=== PATIENT | female | born 1935 | race Hispanic/Latino ===

== ENCOUNTER 2017-10-06 11:04 | Emergency (ER) | payer MEDICARE ==
[2017-10-06 11:12] VITALS: RESP 18; TEMP 98.2
[2017-10-06 11:17] VITALS: BMI 23.8
--- NOTE | 2017-10-06 13:09 | C.PDOC ---
History Of Present Illness 82 y/o female BIBA for evaluation of head injury. Pt states that she was in [place] waiting for the bus. 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 Pt was able to get up by herself. She notes that she did not realize she was bleeding until she went to the bus stop and other people noticed that she was bleeding. Denies having LOC, ASTORGA, blurry vision,CP, SOB, nausea, and vomiting. Of note, last tetanus was < 5 yrs ago. Time Seen by Provider: 10/06/17 11:27 Chief Complaint (Nursing): Abnormal Skin Integrity History Per: Patient History/Exam Limitations: no limitations Onset/Duration Of Symptoms: Hrs Current Symptoms Are (Timing): Still Present Severity: Moderate Past Medical History Reviewed: Historical Data, Nursing Documentation, Vital Signs Vital Signs: Last Vital Signs Temp 98.2 F 10/06/17 15:12 Pulse 93 H 10/06/17 15:12 Resp 18 10/06/17 15:12 BP 176/69 H 10/06/17 15:12 Pulse Ox 99 10/07/17 16:59 - Medical History PMH: Gall Bladder Disease (hx gallstones lap cyndee), HTN, Osteoporosis Denies: Chronic Kidney Disease Surgical History: Cholecystectomy - [facility] Procedures LAPAROSCOPIC ROBOTIC ASSISTED PROCEDURE (02/16/14) LAPAROSCOPY (02/16/14) SUPRAPUBIC SLING OP (02/16/14) Family History: States: No Known Family Hx - Social History Hx Alcohol Use: No Hx Substance Use: No - Immunization History Hx Tetanus Toxoid Vaccination: No Hx Influenza Vaccination: No Hx Pneumococcal Vaccination: No Review Of Systems Constitutional: Negative for: Fever, Chills Cardiovascular: Negative for: Chest Pain Respiratory: Negative for: Cough, Shortness of Breath Gastrointestinal: Negative for: Abdominal Pain Skin: Positive for: Other (laceration to head) Neurological: Negative for: Weakness, Numbness, Headache, Dizziness Physical Exam - Physical Exam Appears: Non-toxic, No Acute Distress, Other (awake,alert) Skin: Normal Color, Warm, Dry Head: Normacephalic, Laceration (1 cm laceration to posterior occiput, no active bleeding), Other ((-) fofana's sign) Eye(s): right: Other (irregular pupil secondary to prior surgery for glaucoma), left: Normal Inspection, PERRL Nose: Normal Oral Mucosa: Moist Neck: Normal ROM, No Midline Cervical Tenderness, Supple Chest: Symmetrical, No Tenderness Cardiovascular: Rhythm Regular Respiratory: Normal Breath Sounds, No Rales, No Rhonchi, No Wheezing Gastrointestinal/Abdominal: Soft, No Tenderness Neurological/Psych: Oriented x3, Normal Speech, Normal Cognition, Normal Cranial Nerves, Normal Motor, Normal Sensation Gait: Steady ED Course And Treatment O2 Sat by Pulse Oximetry: 99 (RA) Pulse Ox Interpretation: Normal - CT Scan/US CT- Head Other Rad Studies (CT/US): Read By Radiologist, Radiology Report Reviewed CT/US Interpretation: PROCEDURE: CT HEAD WITHOUT CONTRAST. HISTORY: fell and hit head no loc. COMPARISON: None available. TECHNIQUE: Axial computed tomography images were obtained through the head/brain without intravenous contrast. Radiation dose: Total exam DLP = 748.90 mGy-cm. This CT exam was performed using one or more of the following dose reduction techniques: Automated exposure control, adjustment of the mA and/or kV according to patient size, and/or use of iterative reconstruction technique. FINDINGS: HEMORRHAGE: No intracranial hemorrhage. BRAIN: Good corticomedullary differentiation is seen. Diffuse expansion of the ventriculosulcal and cisternal spaces is appreciated with relatively prominent white matter lucency compatible with diffuse cerebral atrophy and chronic microangiopathy. No suspicious extra- axial fluid collection is identified and the midline brain anatomy appears grossly nonfocal as imaged. There is no mass effect throughout.No atrophy or chronic microvascular ischemic changes. VENTRICLES: Unremarkable. No hydrocephalus. CALVARIUM: No destructive bony lesion or displaced fracture identified including through the skullbase. PARANASAL SINUSES: Unremarkable as visualized. No significant inflammatory changes. MASTOID AIR CELLS: Unremarkable as visualized. No inflammatory changes. OTHER FINDINGS: None. IMPRESSION: Age-appropriate age-related degenerative change are identified without definite acute intracranial findings by standard CT criteria. CT or MRI are available follow-up if clinically warranted. Laceration - Laceration Repair Occiput Wound Length (In cm): 1 Description Of Wound: Linear (vertical) Anesthesia: Lidocaine 1% Wound Examination: Irrigated With Saline Wound Closure: Jerald (2) Wound Complexity: Simple Medical Decision Making Medical Decision Making: Plan: -- CT- Head wound repair Disposition Counseled Patient/Family Regarding: Studies Performed, Diagnosis, Need For Followup - Disposition Referrals: Lev Delatorre MD [Staff Provider] - Disposition: HOME/ ROUTINE Disposition Time: 15:12 Condition: IMPROVED Additional Instructions: Please do not wash hair in shower until tomorrow. FOllow up with Dr Delatorre in 1 -2 days. Staple removal in 7-10 days. Tylenol for pain if needed. Return to ER right away for any severe headache, nausea, vomiting, seizure, trouble being woken from sleep or any other concerning symptoms. Instructions: Preventing Falls in the Older Adult, Closed Head Injury (DC), Laceration Repair With [place] (DC) Forms: [employer] ([place]), General Discharge Instructions - Clinical Impression Clinical Impression: Closed head injury, Laceration of occipital scalp, Fall - PA / EXTRUDER OPERATOR / Resident Statement MD/DO has reviewed & agrees with the documentation as recorded. - Scribe Statement The provider has reviewed the documentation as recorded by the Scribe Epifanio Verdugo Provider Attestation All medical record entries made by the Scribe were at my direction and personally dictated by me. I have reviewed the chart and agree that the record accurately reflects my personal performance of the history, physical exam, medical decision making, and the department course for this patient. I have also personally directed, reviewed, and agree with the discharge instructions and disposition.
--- NOTE | 2017-10-06 13:39 | CT ---
PROCEDURE: CT HEAD WITHOUT CONTRAST. HISTORY: fell and hit head no loc COMPARISON: None available. TECHNIQUE: Axial computed tomography images were obtained through the head/brain without intravenous contrast. Radiation dose: Total exam DLP = 748.90 mGy-cm. This CT exam was performed using one or more of the following dose reduction techniques: Automated exposure control, adjustment of the mA and/or kV according to patient size, and/or use of iterative reconstruction technique. FINDINGS: HEMORRHAGE: No intracranial hemorrhage. BRAIN: Good corticomedullary differentiation is seen. Diffuse expansion of the ventriculosulcal and cisternal spaces is appreciated with relatively prominent white matter lucency compatible with diffuse cerebral atrophy and chronic microangiopathy. No suspicious extra-axial fluid collection is identified and the midline brain anatomy appears grossly nonfocal as imaged. There is no mass effect throughout.No atrophy or chronic microvascular ischemic changes. VENTRICLES: Unremarkable. No hydrocephalus. CALVARIUM: No destructive bony lesion or displaced fracture identified including through the skullbase. PARANASAL SINUSES: Unremarkable as visualized. No significant inflammatory changes. MASTOID AIR CELLS: Unremarkable as visualized. No inflammatory changes. OTHER FINDINGS: None. IMPRESSION: Age-appropriate age-related degenerative change are identified without definite acute intracranial findings by standard CT criteria. CT or MRI are available follow-up if clinically warranted.
[2017-10-06] MEDS ORDERED: Lidocaine 1% Inj (20ml) INFIL ONE (14:49)
[2017-10-06] MEDS ORDERED: Lidocaine Hydrochloride 5 ML INJ ONE (14:55)
[2017-10-06 15:12] VITALS: BP 176/69; PULSE 93
[2017-10-06 15:15] VITALS: O2SAT 99
== END 2017-10-06 15:22 | disposition home or self-care (01) ==
LOC: C.ER 11:04
DX: S01.01XA Laceration without foreign body of scalp, initial encounter (principal); W18.39XA Other fall on same level, initial encounter; Y92.480 Sidewalk as the place of occurrence of the external cause

== ENCOUNTER 2018-09-22 23:09 | Emergency (ER) | payer MEDICARE, OTHER ==
[2018-09-22 23:09] VITALS: BMI 23.8
--- NOTE | 2018-09-22 23:23 | C.PDOC ---
History Of Present Illness 83 yr old F w/ hx of HTN p/w head trauma and R wrist pain. Pt notes banging her head on the bottom of a doornob while trying to place a mat down. She then notes fall onto her R wrist. She notes pain to her R wrist and a mild headache. No hand pain or shortness of breath or chest pain. No LOC or blood thinner usage. No hip trauma or pain. No other extremity or joint pain. No other complaints. Time Seen by Provider: 09/22/18 23:20 Chief Complaint (Nursing): Trauma Past Medical History - Medical History PMH: Gall Bladder Disease (hx gallstones lap cyndee), HTN, Osteoporosis Denies: Chronic Kidney Disease Surgical History: Cholecystectomy - [facility] Procedures LAPAROSCOPIC ROBOTIC ASSISTED PROCEDURE (02/16/14) LAPAROSCOPY (02/16/14) SUPRAPUBIC SLING OP (02/16/14) Family History: States: Unknown Family Hx - Social History Hx Alcohol Use: No Hx Substance Use: No - Immunization History Hx Tetanus Toxoid Vaccination: No Hx Influenza Vaccination: No Hx Pneumococcal Vaccination: No Review Of Systems Constitutional: Negative for: Fever, Chills, Weakness Eyes: Negative for: Pain, Vision Change ENT: Negative for: Ear Pain, Ear Discharge, Nose Pain, Nose Congestion, Mouth Pain, Mouth Swelling Cardiovascular: Negative for: Chest Pain, Palpitations Respiratory: Negative for: Cough, Shortness of Breath, SOB with Excertion Gastrointestinal: Negative for: Nausea, Vomiting, Abdominal Pain, Constipation, Melena Genitourinary: Negative for: Dysuria, Frequency Musculoskeletal: Positive for: Arm Pain (R wrist). Negative for: Neck Pain, Shoulder Pain, Back Pain, Hand Pain, Leg Pain Skin: Negative for: Rash, Lesions Neurological: Negative for: Weakness, Numbness, Confusion, Headache Physical Exam - Physical Exam Appears: Well, No Acute Distress Skin: Normal Color, Warm, Dry Head: Atraumatic, Normacephalic Eye(s): bilateral: Normal Inspection, PERRL, EOMI Ear(s): Bilateral: Normal Nose: Normal Oral Mucosa: Moist Tongue: Normal Appearing Lips: Normal Appearing Throat: Normal, No Erythema, No Exudate, No Drooling Neck: Normal, Normal ROM, No Decreased ROM, Trachea Midline, No Midline Cervical Tenderness, No Paracervical Tenderness, No Step Off Deformity, Supple, Other (no meningeal signs) Chest: Symmetrical, No Deformity, No Tenderness Cardiovascular: Rhythm Regular, No Friction Rub, No Murmur, No JVD Respiratory: Normal Breath Sounds, No Rales, No Rhonchi, No Stridor, No Wheezing, No Plerual Rub Gastrointestinal/Abdominal: Normal Exam, Soft, No Tenderness, No Mass, No Distention, No Guarding, No Rebound, No Hernia, No Ascites Back: Normal Inspection, No CVA Tenderness, No Vertebral Tenderness, No Paraspinal Tenderness Extremity: Tenderness (R wrist pain), No Pedal Edema, Other (No snuffbox tenderness to b/l UE. ONly R wrist pain. Good Radial pulses b/l ) Extremity: Bilateral: Hips Non-Tender, No Pedal Edema, Pelvis-Stable Pulses: Left Radial: Normal, Right Radial: Normal Neurological/Psych: Oriented x3, Normal Speech, Normal Cognition Gait: Steady Extremity: Right: No Drift, Left: No Drift ED Course And Treatment - Laboratory Results Result Diagrams: 09/22/18 23:52 09/22/18 23:52 Orthopedic Time Performed: 01:15 Time Out: Site verified, Patient ID confirmed Procedure: Splint, Fracture reduction Other:: sugar tong Location: Right, Arm Consent obtained: Written Performed by: Attending Physician Diagnosis: Fracture Type: Closed Location: Right Bone: Radius, Ulna Anesthetic Technique: Procedural sedation Capillary refill: Normal Distal Sensation: Normal Distal Motor Function: Normal Capillary Refill: Normal Compartment: Normal, Soft, Nontender Distal Sensation: Normal Distal Motor Function: Normal Post-reduction Radiograph: Reduced Patient tolerated procedure: Well Medical Decision Making Medical Decision Makin yr old F p/w R wrist pain s/p head impact on doornob and fall onto R wrist. R wrist with good n/v status, ttp. No snuffbox tenderness. No tense compartments noted. Normal neuro exam, head atraumatic. No FND. No blood thinners. Likely R wrist fx. Pending imaging and labs. 1203 fx on R wrist xr, paged Dr. Avila 0100 Dr. Avila recommends reduction, splint and f/u outpt Consent for sedation and procedure done w/ RN witness 0115 Conscious sedation w/ etomidate w/ good effect R wrist reduced with traction, splinted. pending post reduction xr good n/v status post procedure 0146 pt notes great improvement of pain remains w/ good n/v status, strong radial pulse and good sensation in all digits post reduction film w/ good reduction on my read. pt notes she is ok with tylenol for pain steady gait, repeat neuro exam unremarkable clear for d/c home with return indications and f/u. Pt agreeable to plan. Disposition - Disposition Referrals: Pipe Robison MD [Staff Provider] - Nallely Farris MD [Staff Provider] - [facility] ([place]) [facility] [Outside] [facility] [Outside] [facility] [Outside] Disposition: HOME/ ROUTINE Disposition Time: 01:47 Condition: STABLE Additional Instructions: SEE dr. ROBISON FOR A REFERRAL TO A BONE DOCTOR OR SEE DR. AVILA, [facility] KALA REEVES, thank you for letting us take care of you today. Your provider was Milind Pugh and you were treated for FALL. The emergency medical care you received today was directed at your acute symptoms. If you were prescribed any medication, please fill it and take as directed. It may take several days for your symptoms to resolve. Return to the Emergency Department if your symptoms worsen, do not improve, or if you have any other problems. Please contact your doctor or call one of the physicians/clinics you have been referred to that are listed on the Patient Visit Information form that is includ ed in your discharge packet. Bring any paperwork you were given at discharge with you along with any medications you are taking to your follow up visit. Our treatment cannot replace ongoing medical care by a primary care provider outside of the emergency department. Thank you for allowing the [facility] team to be part of your care today. If you had an X-Ray or CT scan: A Radiologist will review the ED reading if any change in treatment is needed we will contact you. If you had a blood, urine, or wound culture: It will take several days for the results, if any change in treatment is needed we will contact you. If you had an STI test: It will take 48 hours for the results. Please call after 1 week if you have not heard back. Prescriptions: Acetaminophen [Tylenol 325mg tab] 650 mg PO Q8H PRN 7 Days #21 tab PRN Reason: Pain, Moderate (4-7) Instructions: Wrist Fracture (DC), Common Wrist Injuries (DC), Moderate Sedati on in Adults (DC) Forms: [employer] ([place]) - Clinical Impression Clinical Impression: Wrist fracture, right
[2018-09-22 23:55] LABS: BASO % 0.4 % (0.0-2.0); EOS # 0.1 K/uL (0.0-0.7); EOS % 1.1 % (0.0-4.0); HEMOGLOBIN 13.8 g/dL (11.0-16.0); LYMPH # 2.2 K/uL (1.0-4.3); LYMPH % 19.8 % (20.0-40.0); MEAN CORPUSCULAR HEMOGLOBIN 28.3 pg (27.0-31.0); MEAN CORPUSCULAR HGB CONC 33.7 g/dL (33.0-37.0); MEAN PLATELET VOLUME 7.9 fL (7.2-11.7); MONO # 0.8 K/uL (0.0-0.8); MONO % 7.1 % (0.0-10.0); NEUT # 7.8 K/uL (1.8-7.0); NEUT % 71.6 % (50.0-75.0); NRBC % 0.2 % (0.0-2.0); RBC 4.86 Mil/uL (3.80-5.20); RED CELL DISTRIBUTION WIDTH 14.8 % (11.5-14.5); WHITE BLOOD COUNT 10.9 K/uL (4.8-10.8)
[2018-09-23 00:04] LABS: INR 1.1; PARTIAL THROMBOPLASTIN TIME 34.5 SECONDS (21-34); PROTHROMBIN TIME 11.6 SECONDS (9.7-12.2)
[2018-09-23 00:08] LABS: ALB/GLOB RATIO 1.2 (1.0-2.1); ALBUMIN 4.8 g/dL (3.5-5.0); ALT/SGPT 27 U/L (9-52); AST/SGOT 29 U/L (14-36); BLOOD UREA NITROGEN 20 mg/dL (7-17); CALCIUM 9.6 mg/dl (8.6-10.4); GFR NON-AFRICAN AMERICAN > 60
[2018-09-23] MEDS ORDERED: Etomidate 20 mg/10ml Inj IV ONE (01:04)
[2018-09-23] MEDS ORDERED: Sodium Chloride 0.9% 1,000 ML IV SCH (01:15)
[2018-09-23 01:39] VITALS: RESP 16
[2018-09-23 02:39] VITALS: BP 146/51; PULSE 74; TEMP 98; O2SAT 98
--- NOTE | 2018-09-23 08:35 | CT ---
Date of service: 09/22/2018 PROCEDURE: CT HEAD WITHOUT CONTRAST. HISTORY: fall COMPARISON: 10/06/2017 TECHNIQUE: Axial computed tomography images were obtained through the head/brain without intravenous contrast. Radiation dose: Total exam DLP = 897.25 mGy-cm. This CT exam was performed using one or more of the following dose reduction techniques: Automated exposure control, adjustment of the mA and/or kV according to patient size, and/or use of iterative reconstruction technique. FINDINGS: HEMORRHAGE: No intracranial hemorrhage. BRAIN: No mass effect or edema. Scattered focal lucencies in the subcortical and periventricular white matter suggestive for chronic microvascular ischemic change. Bilateral basal ganglia lacunar infarcts. Diffuse generalized parenchymal atrophy. VENTRICLES: Unremarkable. No hydrocephalus. CALVARIUM: Unremarkable. PARANASAL SINUSES: Unremarkable as visualized. No significant inflammatory changes. MASTOID AIR CELLS: Unremarkable as visualized. No inflammatory changes. OTHER FINDINGS: None. IMPRESSION: No acute intracranial abnormality. Severe chronic microvascular ischemic change. Diffuse generalized parenchymal atrophy. Bilateral basal ganglia lacunar infarcts. If symptoms persists, consider correlation with MRI. A preliminary report was generated at 12:45 a.m. on 09/23/[address] Hamilton Boykin from [employer].
--- NOTE | 2018-09-23 10:55 | RAD ---
Date of service: 09/22/2018 PROCEDURE: Right Wrist Radiographs. HISTORY: fall COMPARISON: None. TECHNIQUE: 4 views obtained. FINDINGS: BONES: Comminuted impacted distal radial fracture. There is loss of the normal volar angulation of the distal radial articular surface, consistent with the impaction fracture. There is nondisplaced ulnar styloid process fracture. No other acute fracture is identified. 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 There widening of the scapholunate interval consistent with scapholunate ligamentous disruption of uncertain age. There is osteoarthritis at the scaphoid/trapezium articulation as well as at CMC 1 articulation. SOFT TISSUES: Pronator fat pad elevation consistent with hemarthrosis. OTHER FINDINGS: None. IMPRESSION: Comminuted impacted distal radial fracture. Nondisplaced ulnar styloid process fracture. Scapholunate ligamentous disruption of uncertain age. 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
--- NOTE | 2018-09-23 10:56 | RAD ---
Date of service: 09/23/2018 PROCEDURE: Right Wrist Radiographs. HISTORY: s/p reduction COMPARISON: 09/22/2018 TECHNIQUE: 4 views obtained. FINDINGS: BONES: Status post close reduction comminuted impacted distal radial fracture. Near anatomic alignment achieved. Nondisplaced ulnar styloid process fracture again identified. No other fracture appreciated. Bony detail obscured by overlying fiberglass cast material. JOINTS: Normal. No dislocation. SOFT TISSUES: Normal. OTHER FINDINGS: None. IMPRESSION: Status post close reduction distal radial fracture and ulnar styloid process fracture.
== END 2018-09-23 02:40 | disposition home or self-care (01) ==
LOC: C.ER 23:09
DX: S52.591A Other fractures of lower end of right radius, initial encounter for closed fracture (principal); S52.614A Nondisplaced fracture of right ulna styloid process, initial encounter for closed fracture; W18.30XA Fall on same level, unspecified, initial encounter
CPT/HCPCS: 25605; 70450; 73110; 80053; 85025; 85610; 85730; 86850; 86900; 99285; J7030